=== PATIENT | female | born 1960 | race Caucasian/White ===

== ENCOUNTER → 2016-07-30 | Outpatient (CLI) | payer OTHER ==
--- NOTE | 2016-08-02 09:19 | MM ---
Reason for exam: screening (asymptomatic). Last mammogram was performed 1 year and 2 months ago. History: Patient is postmenopausal. Family history of breast cancer in sister at age 62 and breast cancer in paternal grandmother. Benign cyst aspiration of the right breast. Took progesterone for 1 month beginning at age 48. Physical Findings: A clinical breast exam by your physician is recommended on an annual basis and results should be correlated with mammographic findings. MG Screening Mammo w CAD Bilateral CC and MLO view(s) were taken. Prior study comparison: May 31, 2015, bilateral MG 3d screening mammo w/cad. May 17, 2014, bilateral MG diagnostic mammo w CAD PAR[facility]Z. The breast tissue is heterogeneously dense. This may lower the sensitivity of mammography. There is no discrete abnormality. No significant changes when compared with prior studies. ASSESSMENT: Negative, BI-RAD 1 RECOMMENDATION: Routine screening mammogram of both breasts in 1 year.
== END | disposition home or self-care (01) ==
LOC: RADMAMWWP 16:53
PROVIDERS: ATTEND Obstetrics & Gynecology
DX: Z12.31 Encounter for screening mammogram for malignant neoplasm of breast (principal)

== ENCOUNTER → 2017-09-07 | Outpatient (CLI) | payer OTHER ==
--- NOTE | 2017-09-08 14:28 | MM ---
Reason for exam: screening (asymptomatic). Last mammogram was performed 1 year and 1 month ago. History: Patient is postmenopausal. Family history of breast cancer in sister at age 62 and breast cancer in paternal grandmother. Benign cyst aspiration of the right breast. Took progesterone for 1 month beginning at age 48. Physical Findings: A clinical breast exam by your physician is recommended on an annual basis and results should be correlated with mammographic findings. MG Screening Mammo w CAD Bilateral CC and MLO view(s) were taken. Prior study comparison: July 30, 2016, bilateral MG screening mammo w CAD. May 31, 2015, bilateral MG 3d screening mammo w/cad. The breast tissue is heterogeneously dense. This may lower the sensitivity of mammography. Finding: There is a high density, indistinct irregular mass in the lower inner quadrant, middle position of the left breast. New finding since July 30, 2016 and May 31, 2015. ASSESSMENT: Incomplete: need additional imaging evaluation, BI-RAD 0 RECOMMENDATION: Special view mammogram of the left breast. If lesion persists on supplemental views, image directed ultrasound is recommended. [facility] will attempt to contact patient to return for supplemental views and ultrasound if indicated.
== END | disposition home or self-care (01) ==
LOC: RADMAMWWP 09:53
PROVIDERS: ATTEND Obstetrics & Gynecology
DX: Z12.31 Encounter for screening mammogram for malignant neoplasm of breast (principal)
CPT/HCPCS: 77067

== ENCOUNTER → 2017-09-14 | Outpatient (CLI) | payer OTHER ==
--- NOTE | 2017-09-14 10:54 | MM ---
Reason for exam: screening (asymptomatic). Last mammogram was performed less than 1 month ago. History: Patient is postmenopausal. Family history of breast cancer in sister at age 62 and breast cancer in paternal grandmother. Benign cyst aspiration of the right breast. Took progesterone for 1 month beginning at age 48. Physical Findings: A clinical breast exam by your physician is recommended on an annual basis and results should be correlated with mammographic findings. MG Work Up Mamm w CAD LT Spot compression CC, spot compression MLO, and LM view(s) were taken of the left breast. Prior study comparison: September 07, 2017, bilateral MG screening mammo w CAD. July 30, 2016, bilateral MG screening mammo w CAD. The breast tissue is heterogeneously dense. This may lower the sensitivity of mammography. No suspicious abnormality. The previously seen abnormality appears as fibroglandular tissue on additional views. No suspicious abnormality. These results were verbally communicated with the patient and result sheet given to the patient on 09/14/17. ASSESSMENT: Negative, BI-RAD 1 RECOMMENDATION: Return to routine screening mammogram schedule for both breasts.
== END | disposition home or self-care (01) ==
LOC: RADMAMWWP 09:54
PROVIDERS: ATTEND Obstetrics & Gynecology
DX: R92.8 Other abnormal and inconclusive findings on diagnostic imaging of breast (principal)
CPT/HCPCS: 77065

== ENCOUNTER → 2018-09-14 | Outpatient (CLI) | payer BC ==
--- NOTE | 2018-09-14 17:35 | BD ---
EXAMINATION TYPE: Axial Bone Density DATE OF EXAM: 09/14/2018 COMPARISON: 2014 CLINICAL HISTORY: 67-year-old female postmenopausal screening, Z13.820 Height: 61.5 inches Weight: 227 FRAX RISK QUESTIONS: Alcohol (3 or more units per day): no Family History (Parent hip fracture): no Glucocorticoids (More than 3mos): no (Ex: prednisone, prednisolone, methylprednisolone, dexamethasone, and hydrocortisone). History of Fracture in Adulthood: yes, left wrist; left ankle Secondary Osteoporosis: 1. Type 1 Diabetes: no 2. Hyperthyroidism: no 3. Menopause before 45: no 4. Malnutrition: no 5. Chronic liver disease: no Rheumatoid Arthritis: yes Current Tobacco Use: no RISK FACTORS HISTORY OF: History of Wrist Fracture: yes, left When: over 30 years ago Family History of Osteoporosis: not to patient's knowledge Active: yes Diet low in dairy products/other sources of calcium: no Postmenopausal woman: yes Take estrogen and/or progesterone medications: not now How long: one month Lost more than 2 inches in height since high school: no Frequent falls: no Poor Health: no Hyperparathyroidism: no Adrenal Insufficiency: no MEDICATIONS: Thyroid Medications: no Osteoporosis Medications: no Additional Medications: blood pressure Additional History: arthritis EXAM MEASUREMENTS: Bone mineral densitometry was performed using the [employer]. Bone mineral density as measured about the Lumbar spine is: ----- L1-L4(G/cm2): 1.231 T Score Values are as follows: ----- L2: -0.1 ----- L3: 1.3 ----- L4: 0.1 ----- L1-L4: 0.4 Bone mineral density has: Decreased -2.0% since study of: 05/09/2015 Bone mineral density about the R hip (g/cm2): 1.167 Bone mineral density about the L hip (g/cm2): 0.966 T Score values are as follows: -----R Neck: 0.9 -----L Neck: -0.3 -----R Total: 0.7 -----L Total: 0.7 Bone mineral density has: Decreased -0.5% since study of: 05/09/2015 IMPRESSION: Normal (Values between +1 and -1 indicate normal bone mass). Consider repeating this study in 5 year s or sooner if there is some new clinical indication. NOTE: T-SCORE=SD OF THE YOUNG ADULT MEAN.
--- NOTE | 2018-09-15 11:29 | MM ---
Reason for exam: screening (asymptomatic). Last mammogram was performed 1 year ago. History: Patient is postmenopausal. Family history of breast cancer in sister at age 62 and breast cancer in paternal grandmother. Benign cyst aspiration of the right breast. Took progesterone for 1 month beginning at age 48. Physical Findings: A clinical breast exam by your physician is recommended on an annual basis and results should be correlated with mammographic findings. MG Screening Mammo w CAD Bilateral CC and MLO view(s) were taken. Prior study comparison: September 14, 2017, left breast MG work up mamm w CAD LT. September 07, 2017, bilateral MG screening mammo w CAD. The breast tissue is heterogeneously dense. This may lower the sensitivity of mammography. Focal asymmetry upper outer left beast middle third position. This finding is changed when compared with previous exams. ASSESSMENT: Incomplete: need additional imaging evaluation, BI-RAD 0 RECOMMENDATION: Special view mammogram of the left breast. If lesion persists on supplemental views, image directed ultrasound is recommended. [facility] will attempt to contact patient to return for supplemental views and ultrasound if indicated.
== END | disposition home or self-care (01) ==
LOC: RADMAMWWP 09:06
PROVIDERS: ATTEND Obstetrics & Gynecology
DX: Z12.31 Encounter for screening mammogram for malignant neoplasm of breast (principal); Z13.820 Encounter for screening for osteoporosis
CPT/HCPCS: 77067; 77080

== ENCOUNTER → 2018-09-21 | Outpatient (CLI) | payer BC ==
--- NOTE | 2018-09-21 11:30 | MM ---
Reason for exam: additional evaluation requested from abnormal screening. Last mammogram was performed less than 1 month ago. History: Patient is postmenopausal. Family history of breast cancer in sister at age 62 and breast cancer in paternal grandmother. Benign cyst aspiration of the right breast. Took progesterone for 1 month beginning at age 48. Physical Findings: Nurse Summary: 0.5cm nodule in the left breast at 1 o'clock (nurse kp). MG Work Up Mamm w CAD LT CC and MLO view(s) were taken of the left breast. Prior study comparison: September 14, 2018, bilateral MG screening mammo w CAD. September 14, 2017, left breast MG work up mamm w CAD LT. The breast tissue is heterogeneously dense. This may lower the sensitivity of mammography. Density persists although is less conspicuous. Ultrasound recommended. These results were verbally communicated with the patient and result sheet given to the patient on 09/21/17. ASSESSMENT: Incomplete: need additional imaging evaluation, BI-RAD 0 RECOMMENDATION: Ultrasound of the left breast. (palpable) Manage patient on a clinical basis.
--- NOTE | 2018-09-21 11:31 | USB ---
Reason for exam: additional evaluation requested from abnormal screening. History: Patient is postmenopausal. Family history of breast cancer in sister at age 62 and breast cancer in paternal grandmother. Benign cyst aspiration of the right breast. Took progesterone for 1 month beginning at age 48. US Breast Workup Limited LT Left limited breast ultrasound including focal area of concern, retroareolar and axilla demonstrates a 5 x 3 x 5mm oval cystic cluster at 12 o'clock. These results were verbally communicated with the patient and result sheet given to the patient on 09/21/18. ASSESSMENT: Probably benign, BI-RAD 3 RECOMMENDATION: Follow-up diagnostic mammogram and ultrasound of the left breast in 6 months.
== END | disposition home or self-care (01) ==
LOC: RADMAMWWP 10:21
PROVIDERS: ATTEND Obstetrics & Gynecology
DX: R92.8 Other abnormal and inconclusive findings on diagnostic imaging of breast (principal)
CPT/HCPCS: 77065

== ENCOUNTER → 2019-04-11 | Outpatient (CLI) | payer BC ==
--- NOTE | 2019-04-11 11:39 | MM ---
Reason for exam: follow-up at short interval from prior study. Last mammogram was performed 7 months ago. History: Patient is postmenopausal. Family history of breast cancer in sister at age 62 and breast cancer in paternal grandmother. Benign cyst aspiration of the right breast. Took progesterone for 1 month beginning at age 48. Physical Findings: Nurse did not find any significant physical abnormalities on exam. MG Diagnostic Mammo LT w CAD CC and MLO view(s) were taken of the left breast. Prior study comparison: September 21, 2018, left breast MG work up mamm w CAD LT. September 14, 2018, bilateral MG screening mammo w CAD. The breast tissue is heterogeneously dense. This may lower the sensitivity of mammography. No significant new findings when compared with previous films. These results were verbally communicated with the patient and result sheet given to the patient on 04/11/19. ASSESSMENT: Benign, BI-RAD 2 RECOMMENDATION: Return to routine screening mammogram schedule for both breasts. Back on schedule.
--- NOTE | 2019-04-11 11:40 | USB ---
Reason for exam: follow-up at short interval from prior study. History: Patient is postmenopausal. Family history of breast cancer in sister at age 62 and breast cancer in paternal grandmother. Benign cyst aspiration of the right breast. Took progesterone for 1 month beginning at age 48. US Breast Limited LT Left limited breast ultrasound including focal area of concern, retroareolar and axilla demonstrates a 0.6 x 0.3 x 0.5cm cystic cluster at 12 o'clock. These results were verbally communicated with the patient and result sheet given to the patient on 04/11/19. ASSESSMENT: Probably benign, BI-RAD 3 RECOMMENDATION: Ultrasound of the left breast in 6 months. (upper outer quadrant)
== END | disposition home or self-care (01) ==
LOC: RADMAMWWP 09:36
PROVIDERS: ATTEND Obstetrics & Gynecology
DX: R92.8 Other abnormal and inconclusive findings on diagnostic imaging of breast (principal)
CPT/HCPCS: 77065

== ENCOUNTER → 2020-07-17 | Outpatient (CLI) | payer BC ==
--- NOTE | 2020-07-17 12:25 | MM ---
Reason for exam: additional evaluation requested from prior study. Last mammogram was performed 1 year and 3 months ago. History: Patient is postmenopausal. Family history of breast cancer in sister at age 62 and breast cancer in paternal grandmother. Benign cyst aspiration of the right breast. Took progesterone for 1 month beginning at age 48. Physical Findings: Nurse did not find any significant physical abnormalities on exam. MG Diagnostic Mammo w CAD [facility] Bilateral CC and MLO view(s) were taken. Prior study comparison: April 11, 2019, left breast MG diagnostic mammo LT w CAD. September 14, 2018, bilateral MG screening mammo w CAD. There are scattered fibroglandular densities. There is no discrete abnormality including area of concern on previous mammograms. No significant new findings when compared with previous films. These results were verbally communicated with the patient and result sheet given to the patient on 07/17/20. ASSESSMENT: Benign, BI-RAD 2 RECOMMENDATION: Routine screening mammogram of both breasts in 1 year.
--- NOTE | 2020-07-17 12:27 | USB ---
Reason for exam: follow-up at short interval from prior study. History: Patient is postmenopausal. Family history of breast cancer in sister at age 62 and breast cancer in paternal grandmother. Benign cyst aspiration of the right breast. Took progesterone for 1 month beginning at age 48. US Breast LT Left complete breast ultrasound includes all four quadrants, the retroareolar region and axilla. Finding demonstrates a 4 x 2 x 4mm cystic cluster at 12 o'clock, smaller than prior and a 3 x 4 x 4mm oval, cystic lesion at the posterior nipple. These results were verbally communicated with the patient and result sheet given to the patient on 07/17/20. ASSESSMENT: Benign, BI-RAD 2 RECOMMENDATION: Routine screening mammogram of both breasts in 1 year.
== END | disposition home or self-care (01) ==
LOC: RADMAMWWP 10:21
PROVIDERS: ATTEND Obstetrics & Gynecology
DX: R92.8 Other abnormal and inconclusive findings on diagnostic imaging of breast (principal)
CPT/HCPCS: 77066

== ENCOUNTER → 2023-04-18 | Outpatient (CLI) | payer BC ==
--- NOTE | 2023-04-19 11:58 | MM ---
Reason for Exam: Screening (asymptomatic). Last mammogram was performed 2 year(s) and 9 month(s) ago. Patient History: Menarche at age 12. First Full-Term at age 19. Postmenopausal. Patient has history of breast feeding. Progesterone for 1 month starting at age 48. Benign Cyst Aspiration on the right side. Paternal grandmother had breast cancer. Sister had breast cancer, age 62. Sister had breast cancer, age 70. Risk Values: Sweta 5 year model risk: 6.0%. NCI Lifetime model risk: 22.1%. Prior Study Comparison: 09/21/2018 Left Diagnostic Mammogram, [facility]. 04/11/2019 Left Diagnostic Mammogram, [facility]. 07/17/2020 Bilateral Diagnostic Mammogram, [facility]. Tissue Density: The breast tissue is heterogeneously dense. This may lower the sensitivity of mammography. Findings: Analyzed By CAD. There is no suspicious group of microcalcifications or new suspicious mass in either breast. Overall Assessment: Benign, BI-RAD 2 Management: Screening Mammogram of both breasts in 1 year. . Patient should continue monthly self-breast exams. A clinical breast exam by your physician is recommended on an annual basis. This exam should not preclude additional follow-up of suspicious palpable abnormalities. Note on Sweta scores and lifetime risk: 1. A Sweta score greater than 3% is considered moderate risk. If this is the case, consider specialist referral to assess eligibility for a risk reducing agent. 2. If overall lifetime risk for the development of breast cancer is 20% or higher, the patient may qualify for future screening with alternating mammogram and breast MRI. Electronically signed and approved by: Nilo Chaney M.D. Radiologis
== END | disposition home or self-care (01) ==
LOC: RADMAMWWP 13:03
PROVIDERS: ATTEND Obstetrics & Gynecology
DX: Z12.31 Encounter for screening mammogram for malignant neoplasm of breast (principal); Z78.0 Asymptomatic menopausal state; Z80.3 Family history of malignant neoplasm of breast
CPT/HCPCS: 77063; 77067

== ENCOUNTER → 2024-05-02 | Outpatient (CLI) | payer MEDICARE, BC ==
--- NOTE | 2024-05-07 11:33 | MM ---
Reason for Exam: Screening (asymptomatic). Last mammogram was performed 1 year(s) and 1 month(s) ago. Patient History: Menarche at age 12. First Full-Term at age 19. Postmenopausal. Patient has history of breast feeding. Progesterone for 1 month starting at age 48. Benign Cyst Aspiration on the right side. Paternal grandmother had breast cancer. Sister had breast cancer, age 62. Sister had breast cancer, age 70. Risk Values: Sweta 5 year model risk: 6.1%. NCI Lifetime model risk: 21.4%. Prior Study Comparison: 04/11/2019 Left Diagnostic Mammogram, [facility]. 07/17/2020 Bilateral Diagnostic Mammogram, [facility]. 04/18/2023 Bilateral MG 3D screening mammo w/cad, [facility]. Tissue Density: The breasts are heterogeneously dense, which may obscure small masses. Findings: Analyzed By CAD. Right breast: There is no suspicious group of microcalcifications or new suspicious mass. Left breast: There is no suspicious group of microcalcifications or new suspicious mass. Overall Assessment: Negative, BI-RAD 1 Management: Screening Mammogram of both breasts in [address] [facility] will attempt to contact patient to return for supplemental views and ultrasound if indicated. Patient should continue monthly self-breast exams. A clinical breast exam by your physician is recommended on an annual basis. This exam should not preclude additional follow-up of suspicious palpable abnormalities. Note on Sweta scores and lifetime risk: 1. A Sweta score greater than 3% is considered moderate risk. If this is the case, consider specialist referral to assess eligibility for a risk reducing agent. 2. If overall lifetime risk for the development of breast cancer is 20% or higher, the patient may qualify for future screening with alternating mammogram and breast MRI. [facility], , 05/07/2024 11:31 AM. Electronically signed and approved by: Tyson Baldwin DO
== END | disposition home or self-care (01) ==
LOC: RADMAMWWP 11:24
PROVIDERS: ATTEND Family Medicine
DX: Z12.31 Encounter for screening mammogram for malignant neoplasm of breast (principal); R92.333 Mammographic heterogeneous density, bilateral breasts; Z78.0 Asymptomatic menopausal state; Z80.3 Family history of malignant neoplasm of breast
CPT/HCPCS: 77063; 77067

== ENCOUNTER 2024-05-21 08:20 | Day surgery (SDC) | payer MEDICARE, BC ==
[2024-05-18 08:42] VITALS: BMI 40.8
[2024-05-21 09:07] VITALS: TEMP 97
[2024-05-21] MEDS: IV FLUID CONTINUATION 1,000 ML IV ONE (09:10)
[2024-05-21] MEDS: LACTATED RINGERS 1,000 ML IV SCH (09:11)
[2024-05-21] MEDS ORDERED: PROPOFOL 10 MG/ML 20 ML VIAL IV ONE (09:22)
--- NOTE | 2024-05-21 09:25 | P.GSHP ---
History of Present Illness H&P Date: 05/21/24 Chief Complaint: Screening colonoscopy, history of colon polyps Is a 63-year-old female who presents today for colonoscopy. Patient's previous history of colon polyps. Past Medical History Past Medical History: GERD/Reflux, Hypertension, Rheumatoid Arthritis (RA), Skin Disorder, Sleep Apnea/CPAP/BIPAP Additional Past Medical History / Comment(s): no cpap, POST MENAPAUSAL BLEEDING, ROSACEA History of Any Multi-Drug Resistant Organisms: None Reported Past Surgical History: Tonsillectomy Additional Past Surgical History / Comment(s): D&C Past Anesthesia/Blood Transfusion Reactions: Previous Problems w/ Anesthesia, Postoperative Nausea & Vomiting (PONV) Additional Past Anesthesia/Blood Transfusion Reaction / Comment(s): HAS HAD MIGRAINES POST OP, STATES IF GIVEN O2 DURING PROCEDURE IS OKAY Smoking Status: Never smoker - Past Family History Mother Family Medical History: Cancer Additional Family Medical History / Comment(s): PANCREAS Father Family Medical History: Cancer Additional Family Medical History / Comment(s): LYMPHOMA Sister(s) Family Medical History: Cancer Additional Family Medical History / Comment(s): 2 SISTERS HX OF BREAST CA Medications and Allergies Home Medications Medication Instructions Recorded Confirmed Type Bisoprolol-Hctz 5-6.25 mg [Ziac 1 each PO BID 06/02/16 05/21/24 History 5-6.25] Cetirizine HCl [Zyrtec ODT] 10 mg PO DAILY 06/02/16 05/21/24 History Hydroxychloroquine Sulfate 200 mg PO BID 06/02/16 05/21/24 History [Plaquenil] Omeprazole 20 mg PO QAM 06/02/16 05/21/24 History Venlafaxine HCl 37.5 mg PO QAM 06/02/16 05/21/24 History Fluticasone Nasal [place] [Flonase 2 sprays EA NOSTRIL DAILY 05/18/24 05/21/24 History Nasal [place]] Naproxen Sodium [Aleve] 440 mg PO BID PRN 05/18/24 05/21/24 History Oxybutynin Chloride [oxyBUTYnin 10 mg PO DAILY@1500 05/18/24 05/21/24 History chloride ER] Vitamin C/Biotin [Hair, Skin and 2 tab PO DAILY 05/18/24 05/21/24 History Nails Chew] Allergies Allergy/AdvReac Type Severity Reaction Status Date / Time feathers Allergy NASAL Verified 05/18/24 08:31 CONGESTION Surgical - Exam Vital Signs Temp Pulse Resp BP Pulse Ox 97.0 F L 79 18 167/78 97 05/21/24 09:06 05/21/24 09:06 05/21/24 09:06 05/21/24 09:06 05/21/24 09:06 - General well developed, well nourished, no distress - Eyes PERRL - ENT normal pinna, normal nares - Neck no masses - Respiratory normal expansion - Cardiovascular Rhythm: regular - Abdomen Abdomen: soft, non tender Assessment and Plan Assessment: History colon polyps. Will perform colonoscopy.
[2024-05-21] MEDS: IPRATROPIUM-ALBUTEROL 3 ML NEB INHALATION STA (10:22)
[2024-05-21 10:53] VITALS: BP 146/74; PULSE 77; RESP 20
--- NOTE | 2024-05-21 11:03 | P.OP ---
Date of Procedure: 05/21/24 Preoperative Diagnosis: Screening colonoscopy Postoperative Diagnosis: Normal colon visualized to the right colon Procedure(s) Performed: Colonoscopy Anesthesia: MAC Surgeon: Sheng Eid Pathology: none sent Condition: stable Disposition: PACU Description of Procedure: Patient is placed on the endoscopy table lateral position. She received IV sedation. Digital rectal exams performed which revealed no abnormalities. The flexible colonoscope was then placed patient anus passed with a cold. The scope was positioned to the right colon. At this point the patient refluxed. It was unsure if she aspirated. The procedure was stopped this point. The visualized right colon appeared normal. The transverse colon appeared normal. The descending colon appeared normal. The sigmoid colon and rectum appeared normal. T the patient was evaluated by anesthesia. And sent to recovery room in stable condition.
== END 2024-05-21 11:38 | disposition home or self-care (01) ==
LOC: ORWHC2ENDO 08:20
PROVIDERS: ATTEND Surgery
DX: Z12.11 Encounter for screening for malignant neoplasm of colon (principal); Z86.0100 Personal history of colon polyps, unspecified; K21.9 Gastro-esophageal reflux disease without esophagitis; I10 Essential (primary) hypertension; M06.9 Rheumatoid arthritis, unspecified; G47.33 Obstructive sleep apnea (adult) (pediatric); L71.9 Rosacea, unspecified; N95.0 Postmenopausal bleeding; Z90.89 Acquired absence of other organs; Z79.899 Other long term (current) drug therapy; Z91.09 Other allergy status, other than to drugs and biological substances
CPT/HCPCS: J2704; G0105; 45378

== ENCOUNTER → 2024-11-12 | Outpatient (CLI) | payer BC, MEDICARE ==
[2024-11-12 14:02] VITALS: BP 146/84; PULSE 78; RESP 16; TEMP 98.7
--- NOTE | 2024-11-12 14:19 | P.SLEEP ---
History of Present Illness DATE: 11/12/2024 CONSULTATION/NEW PATIENT EVALUATION HISTORY OF PRESENT ILLNESS/SLEEP-WAKE EVALUATION: 63-year-old lady had been e valuated in the sleep center for possible obstructive sleep apnea hypopnea syndrome. Patient Sleep study more than 10 years ago in our institution which showed severe obstructive sleep apnea hypopnea syndrome. At that time patient was not able to use CPAP therapy mostly secondary to mask problems related to claustrophobia. SLEEP SCHEDULE: Usually sleep schedule from 10 PM to 5 AM on weekdays and from 11 PM to 6 AM weekend. FALLING ASLEEP: No problems with falling asleep. DURING SLEEP: Patient snores, has episodes of stop breathing during the sleep, wakes up from sleep 3 times with nocturia. Positive history of grinding teeth, heartburn, sleep talking. No history of hypnogogical hallucinations, sleep paralysis, or cataplexy. DURING THE DAY/WAKE STATE: Patient feels sleepy during the day while watching TV. Rudolph sleepiness scale is 4. Usually patient does not take any scheduled naps. PAST MEDICAL HISTORY: Hypertension, acid reflux, depression. PAST SURGICAL HISTORY: Tonsillectomy. MEDICATIONS: Please see below. SOCIAL HISTORY: Please see below. FAMILY HISTORY: Please see below. REVIEW OF SYSTEMS: Please see below. No fevers. No double vision. No recent chest pain. No shortness of breath. No abdominal pain. No bleeding episodes. No blood in urine. No seizure episodes. PHYSICAL EXAMINATION: GENERAL: A pleasant patient without any distress. VITAL SIGNS: Please see below, weight 274.2 pounds, BMI 51.0. HEENT: PERRLA, EOMI. Evaluation of oropharynx showed tongue protrudes midline, low position of soft palate Mallampati 4. NECK: Supple. No JVD. Thyroid is not palpable. 19 inches in circumference. LUNGS: Clear to percussion and to auscultation. Good air exchange. No wheezing or rhonchi. HEART: S1, S2 regular. No murmurs, gallops or rubs. ABDOMEN: Soft and nontender. Bowel sounds are present. No organomegaly appreciated. Obese. EXTREMITIES: No clubbing or cyanosis. COMMUNITY SERVICE REPRESENTATIVE: Awake, alert, and oriented x3. Cranial nerves 2 to 7 intact. There is no fasciculation or atrophy noted. No focal deficits observed. ASSESSMENT: 1. Snoring, multiple awakenings from sleep, extremely low position of soft palate Mallampati 4, wide neck 19 inches in circumference, history of severe obstructive sleep apnea hypopnea syndrome in the past. Obstructive sleep apnea hypopnea syndrome. 2. Obesity, BMI 51.0. 3. Hypertension. 4. Acid reflux. 5 history of depression. 6 . Post tonsillectomy. PLAN: 1. Polysomnography for evaluation of patient's breathing during sleep. 2. Following plan after reading sleep study. 3. Preferable position during sleep on the side. 4. No driving if patient feels any sleepiness. Patient is aware of civil and criminal liability for unsafe driving. 5. Sleep hygiene with regular sleep time for at least 7.5-8 hours. 6. Watching and losing weight. Thank you very much for referring this patient for consultation. Sincerely, Stuart Ghosh MD, PhD, FAASM. Diplomat of [place] [employer], Sleep Medicine Board by [place] [employer] [place] [employer] [facility] [place] cc: Sherif Thomas DO Past Medical History Past Medical History: GERD/Reflux, Hypertension, Rheumatoid Arthritis (RA), Skin Disorder, Sleep Apnea/CPAP/BIPAP Additional Past Medical History / Comment(s): no cpap, POST MENAPAUSAL BLEEDING, ROSACEA History of Any Multi-Drug Resistant Organisms: None Reported Past Surgical History: Tonsillectomy Additional Past Surgical History / Comment(s): D&C Past Anesthesia/Blood Transfusion Reactions: Previous Problems w/ Anesthesia, Postoperative Nausea & Vomiting (PONV) Additional Past Anesthesia/Blood Transfusion Reaction / Comment(s): HAS HAD MIGRAINES POST OP, STATES IF GIVEN O2 DURING PROCEDURE IS OKAY Past Psychological History: No Psychological Hx Reported Smoking Status: Never smoker Past Alcohol Use History: None Reported Past Drug Use History: None Reported - Past Family History Mother Family Medical History: Cancer Additional Family Medical History / Comment(s): PANCREAS Father Family Medical History: Cancer Additional Family Medical History / Comment(s): LYMPHOMA Sister(s) Family Medical History: Cancer Additional Family Medical History / Comment(s): 2 SISTERS HX OF BREAST CA Medications and Allergies Home Medications Medication Instructions Recorded Confirmed Type Bisoprolol-Hctz 5-6.25 mg [Ziac 1 each PO BID 06/02/16 11/12/24 History 5-6.25] Cetirizine HCl [Zyrtec ODT] 10 mg PO DAILY 06/02/16 11/12/24 History Hydroxychloroquine Sulfate 200 mg PO BID 06/02/16 11/12/24 History [Plaquenil] Omeprazole 20 mg PO QAM 06/02/16 11/12/24 History Venlafaxine HCl 37.5 mg PO QAM 06/02/16 11/12/24 History Fluticasone Nasal Bradley [Flonase 2 sprays EA NOSTRIL DAILY 05/18/24 11/12/24 History Nasal Bradley] Naproxen Sodium [Aleve] 440 mg PO BID PRN 05/18/24 05/21/24 History Oxybutynin Chloride [oxyBUTYnin 10 mg PO DAILY@1500 05/18/24 11/12/24 History chloride ER] Vitamin C/Biotin [Hair, Skin and 2 tab PO DAILY 05/18/24 11/12/24 History Nails Chew] Diclofenac Submicronized 11/12/24 History [Diclofenac] metroNIDAZOLE 1% GEL [Metrogel 1%] 1 applic TOPICAL DAILY 11/12/24 11/12/24 History Allergies Allergy/AdvReac Type Severity Reaction Status Date / Time feathers Allergy NASAL Verified 05/18/24 08:31 CONGESTION Physical Exam Vitals: Vital Signs Temp Pulse Resp BP Pulse Ox 11/12/24 13:59 98.7 F 78 16 146/84 97 Intake and Output 11/11/24 11/12/24 11/12/24 22:59 06:59 14:59 Other: Weight 124.284 kg Sleep Note - Sleep Data ESS Total: 4 - Sleep Note Sleep Note: Temperature: 98.7 F Pulse Rate: 78 Respiratory Rate: 16 Blood Pressure: 146/84 SpO2: 97 Height: 5 ft 1 in Weight: 124.284 kg BMI: Neck Circumference: 19
== END ==
LOC: 3 N SLEEP 13:36
PROVIDERS: ATTEND Internal Medicine
DX: G47.33 Obstructive sleep apnea (adult) (pediatric) (principal); E66.9 Obesity, unspecified; I10 Essential (primary) hypertension; K21.9 Gastro-esophageal reflux disease without esophagitis; F32.A Depression, unspecified; Z90.89 Acquired absence of other organs; Z68.43 Body mass index [BMI] 50.0-59.9, adult; Z91.048 Other nonmedicinal substance allergy status
CPT/HCPCS: 99211